=== PATIENT | female | born 1985 | race Hispanic/Latino ===

== ENCOUNTER 2018-09-20 20:28 | Emergency (ER) | payer SELFPAY ==
[2018-09-20] MEDS ORDERED: TETANUS & DIPHTHERIA TOX,ADULT 0.5 ML VIAL ONE (21:29)
[2018-09-20] MEDS ORDERED: LIDOCAINE 1% MPF 5 ML VIAL ONE (21:36)
--- NOTE | 2018-09-20 21:56 | RAD REPORT ---
EXAM DESCRIPTION: RAD - Hand Left 3 View - 09/20/2018 9:35 pm CLINICAL HISTORY: Hand trauma, hand pain, index finger laceration COMPARISON: None. FINDINGS: No fracture, dislocation or periosteal reaction noted. No acute bone or joint finding. Sof t tissue wound of the index finger is present near the middle phalanx. No air or foreign body. IMPRESSION: Soft tissue injury is present left second digit. No acute bone or joint finding.
--- NOTE | 2018-09-20 22:46 | EDPHYS ---
Physician Documentation [facility] Name: Shanon Hillman Age: 33 yrs Sex: Female : 1985 Arrival Date: 09/20/2018 Time: 20:31 Bed 28 Private MD: None, None ED Physician Amauri Last HPI: 09/20 21:20 This 33 yrs old Female presents to ER via Ambulatory with complaints of Finger cp laceration. 21:20 The patient or guardian reports injury, a laceration, irregular. cp 21:20 The complaints affect the dorsal aspect of middle phalanx of left index finger. cp Context: The problem was sustained at home, resulted from accident while using knife. Onset: The symptoms/episode began/occurred just prior to arrival. Associated signs and symptoms: Pertinent negatives: cyanosis distally, decreased sensation distally, numbness distally. 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 - Social history:: Smoking status: Patient/guardian denies using tobacco. - Ebola Screening: : Patient denies travel to an Ebola-affected area in the 21 days before illness onset. ROS: 21:25 Constitutional: Negative for body aches, chills, fever. cp 21:25 Cardiovascular: Negative for chest pain, edema, palpitations. cp 21:25 Respiratory: Negative for cough, shortness of breath, wheezing. 21:25 MS/extremity: Negative for decreased range of motion, paresthesias. 21:25 Skin: Positive for laceration(s), of the dorsal aspect of middle phalanx of left index finger, Negative for cellulitis, rash. 21:25 Neuro: Negative for numbness, tingling. 21:25 All other systems are negative. Exam: 21:33 Constitutional: The patient appears in no acute distress, alert, awake, non-toxic, well cp developed, well nourished. 21:33 Head/Face: Normocephalic, atraumatic. cp 21:33 Eyes: Periorbital structures: appear normal, Conjunctiva: normal, no exudate, no injection, Lids and lashes: appear normal, bilaterally. 21:33 ENT: External ear(s): are unremarkable, Nose: is normal, Mouth: is normal. 21:33 Chest/axilla: Inspection: normal. 21:33 Cardiovascular: Rate: tachycardic. 21:33 Respiratory: the patient does not display signs of respiratory distress, Respirations: normal. 21:33 Abdomen/GI: Inspection: abdomen appears normal. 21:33 Musculoskeletal/extremity: ROM: limited active range of motion, in the left index finger, Sensation intact. Tendon exam: specific tendon testing normal through active and passive range of motion 21:33 Skin: injury, laceration(s), the wound is approximately 3.5 cm(s), of the dorsal aspect of middle phalanx of left index finger, that can be described as clean, no foreign body, irregular, with moderate bleeding. Vital Signs: 20:48 BP 149 / 61; Pulse 102; Resp 18; Temp 97.8; Pulse Ox 99% on R/A; Weight 90.72 kg (R); aj1 Height 5 ft. 2 in. (157.48 cm) (R); Pain 10/10; 22:52 BP 121 / 93; Pulse 76; Resp 18; Temp 98.1; Pulse Ox 99% on R/A; Pain 0/10; ak1 20:48 Body Mass Index 36.58 (90.72 kg, 157.48 cm) aj1 Laceration: 22:45 Wound Repair of 3.5cm ( 1.4in ) subcutaneous laceration to dorsal aspect of middle cp phalanx of left index finger. Irregularly shaped.. Distal neuro/vascular/tendon intact. Anesthesia: Wound infiltrated with 5 mls of Lido/Marcaine. Wound prep: Extensive cleansing by me, Wound irrigation by me. Skin closed with 7 4-0 Prolene using interrupted sutures and sterile technique. Dressed with Bacitracin, tube gauze. Patient tolerated well. MDM: 20:57 Patient medically screened. cp 21:00 Differential diagnosis: open fracture, simple laceration, tendon injury. cp 22:41 Data reviewed: vital signs, nurses notes, radiologic studies, plain films, and as a cp result, I will discharge patient. 22:41 Test interpretation: by ED physician or midlevel provider: plain radiologic studies. cp 22:41 Counseling: I had a detailed discussion with the patient and/or guardian regarding: the cp historical points, exam findings, and any diagnostic results supporting the discharge/admit diagnosis, radiology results, to return to the emergency department if symptoms worsen or persist or if there are any questions or concerns that arise at home. Response to treatment: the patient's symptoms have markedly improved after treatment, and as a result, I will discharge patient. 09/20 21:18 Order name: XRAY Hand LEFT 3 View; Complete Time: 22:23 cp 09/20 22:23 Interpretation: Report reviewed. cp 09/20 21:18 Order name: Prolene, Sutures; Complete Time: 21:57 cp 09/20 21:18 Order name: Dressing - Wound; Complete Time: 22:30 cp 09/20 21:18 Order name: Gloves, Sterile; Complete Time: 21:24 cp 09/20 21:18 Order name: Setup Suture Tray; Complete Time: 21:24 cp 09/20 22:26 Order name: Wound dressing: tube guaze; Complete Time: 22:37 cp 09/20 22:26 Order name: Finger Splint; Complete Time: 22:37 cp Administered Medications: 21:25 Drug: Tetanus-Diphtheria Toxoid Adult 0.5 ml {Clinical Specialist Vascular: [employer]. Exp: kr2 11/02/2020. Lot #: [id number]. } Route: IM; Site: left deltoid; 22:06 Follow up: Response: No adverse reaction 2 21:56 Drug: Lidocaine (1 %) 5 mg {Note: placed at bedside for provider use.} Route: ak1 Infiltration; 21:57 Drug: Marcaine (0.5 %) 5 ml {Note: placed at bedside for provider use.} Volume: 10 ml; ak1 Route: Infiltration; Disposition: 23:00 Chart complete. cp 09/21 06:19 Co-signature as Attending Physician, Amauri Last MD Available for consultation at ps1 all times. . Disposition: 09/20/18 22:42 Discharged to Home. Impression: Laceration without foreign body of finger without damage to nail - Dorsum left index finger. - Condition is Stable. - Discharge Instructions: Laceration Care, Adult. - Prescriptions for Keflex 500 mg Oral Capsule - take 1 capsule by ORAL route every 8 hours for 10 days; 30 capsule. Tylenol- Codeine #3 300-30 mg Oral Tablet - take 2 tablets by ORAL route every 6 hours As needed; 12 tablet. - Medication Reconciliation Form, Thank You Letter, Antibiotic Education, Prescription Opioid Use form. - Follow up: Private Physician; When: 7 - 10 days; Reason: Staple/Suture removal. - Problem is new. - Symptoms have improved. Signatures: Dispatcher [employer] EDMS Liliana Haynes RN RN aj1 Melvina Melvin RN RN ak1 Colten Maxwell PA PA cp Jenna Barrientos RN RN kr2 Amauri Last MD MD ps1 Corrections: (The following items were deleted from the chart) 09/20 22:52 22:42 09/20/2018 22:42 Discharged to Home. Impression: Laceration without foreign body ak1 of finger without damage to nail - Dorsum left index finger. Condition is Stable. Forms are Medication Reconciliation Form, Thank You Letter, Antibiotic Education, Prescription Opioid Use. Follow up: Private Physician; When: 7 - 10 days; Reason: Staple/Suture removal. Problem is new. Symptoms have improved. cp
--- NOTE | 2018-09-20 22:46 | ER ---
Nurse's Notes [facility] Name: Shanon Hillman Age: 33 yrs Sex: Female : 1985 Arrival Date: 09/20/2018 Time: 20:31 Bed 28 Private MD: None, None Diagnosis: Laceration without foreign body of finger without damage to nail-Dorsum left index finger Presentation: 09/20 20:47 Presenting complaint: Patient states: She was cutting something in the kitchen and the aj1 knife slipped and she cut her left index finger. Laceration noted to left index finger, bleeding moderately. Transition of care: patient was not received from another setting of care. Onset of symptoms was September 20, 2018. Risk Assessment: Do you want to hurt yourself or someone else? Patient reports no desire to harm self or others. Initial Sepsis Screen: Does the patient meet any 2 criteria? No. Patient's initial sepsis screen is negative. Does the patient have a suspected source of infection? No. Patient's initial sepsis screen is negative. Care prior to arrival: None. 20:47 Method Of Arrival: Ambulatory aj1 20:47 Acuity: JESSI 4 aj1 Triage Assessment: 20:48 General: Appears in no apparent distress. uncomfortable, Behavior is cooperative, aj1 anxious, crying. Pain: Complains of pain in dorsal aspect of distal phalanx of left index finger Pain currently is 10 out of 10 on a pain scale. Neuro: Level of Consciousness is awake, alert, obeys commands. Cardiovascular: Patient's skin is warm and dry. Respiratory: Airway is patent Respiratory effort is even, unlabored, Respiratory pattern is regular, symmetrical. Injury Description: Laceration sustained to dorsal aspect of distal phalanx of left index finger moderate bleeding noted at this time. 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 - Social history:: Smoking status: Patient/guardian denies using tobacco. - Ebola Screening: : Patient denies travel to an Ebola-affected area in the 21 days before illness onset. Screenin:02 Abuse screen: Denies threats or abuse. Denies injuries from another. Nutritional kr2 screening: No deficits noted. Tuberculosis screening: No symptoms or risk factors identified. Fall Risk None identified. Assessment: 21:00 General: Appears in no apparent distress. uncomfortable, well groomed, well developed, kr2 well nourished, Behavior is cooperative, anxious, crying. Pain: Complains of pain in dorsal aspect of distal phalanx of left index finger Pain radiates to left hand Pain currently is 6 out of 10 on a pain scale. Quality of pain is described as aching, tender, Is continuous. Neuro: Level of Consciousness is awake, alert, obeys commands, Oriented to person, place, time, situation. Cardiovascular: Capillary refill < 3 seconds in bilateral fingers Patient's skin is warm and dry. Respiratory: Airway is patent Respiratory effort is even, unlabored, Respiratory pattern is regular, symmetrical. Derm: Skin is healthy with good turgor, Skin is pink, warm \T\ dry. Musculoskeletal: Circulation, motion, and sensation intact. Injury Description: Laceration sustained to dorsal aspect of distal phalanx of left index finger is full thickness, 0.5 to 2.5 cm long, was sustained 30-60 minutes ago. moderate bleeding noted at this time. Gauze applied to finger. 22:38 Reassessment: tube gauze applied, finger splint applied. ak1 Vital Signs: 20:48 BP 149 / 61; Pulse 102; Resp 18; Temp 97.8; Pulse Ox 99% on R/A; Weight 90.72 kg (R); aj1 Height 5 ft. 2 in. (157.48 cm) (R); Pain 10/10; 22:52 BP 121 / 93; Pulse 76; Resp 18; Temp 98.1; Pulse Ox 99% on R/A; Pain 0/10; ak1 20:48 Body Mass Index 36.58 (90.72 kg, 157.48 cm) aj1 ED Course: 20:31 Patient arrived in ED. mr 20:32 None, None is Private Physician. mr 20:47 Triage completed. aj1 20:48 Arm band placed on Patient placed in an exam room. aj1 20:57 Colten Maxwell PA is PHCP. cp 20:57 Amauri Last MD is Attending Physician. cp 21:00 Jenna Barrientos, RN is Primary Nurse. kr2 21:02 Patient has correct armband on for positive identification. Bed in low position. Call kr2 light in reach. Side rails up X 1. Adult w/ patient. Pulse ox on. NIBP on. Door closed. Head of bed elevated. 21:32 X-ray completed. Portable x-ray completed in exam room. Patient tolerated procedure az well. 21:33 XRAY Hand LEFT 3 View In Process Unspecified. EDMS 22:39 No provider procedures requiring assistance completed. Patient did not have IV access ak1 during this emergency room visit. Administered Medications: 21:25 Drug: Tetanus-Diphtheria Toxoid Adult 0.5 ml {Cooling Pan Tender: [employer]. Exp: kr2 11/02/2020. Lot #: [id number]. } Route: IM; Site: left deltoid; 22:06 Follow up: Response: No adverse reaction kr2 21:56 Drug: Lidocaine (1 %) 5 mg {Note: placed at bedside for provider use.} Route: ak1 Infiltration; 21:57 Drug: Marcaine (0.5 %) 5 ml {Note: placed at bedside for provider use.} Volume: 10 ml; ak1 Route: Infiltration; Outcome: 22:39 Condition: improved ak1 22:42 Discharge ordered by MD. cp 22:52 Discharged to home ambulatory, with family. ak1 22:52 Discharge instructions given to patient, Instructed on discharge instructions, follow up and referral plans. no drinking with medication, no driving heavy equipment, medication usage, safe sex practices, wound care, Demonstrated understanding of instructions, follow-up care, medications, wound care, Prescriptions given X 2. 22:52 Patient left the ED. ak1 Signatures: Dispatcher [employer] EDMS Liliana Haynes RN RN evette1 Brittany Vergara Amber, RN RN ak1 Colten Maxwell PA PA cp Jenna Barrientos, MIRIAM RN kr2 Jena Ag Corrections: (The following items were deleted from the chart) 21:34 21:00 Injury Description: Laceration sustained to dorsal aspect of distal phalanx of kr2 left index finger is full thickness, 0.5 to 2.5 cm long, was sustained 30-60 minutes ago. a small amount of bleeding noted at this time. kr2
== END 2018-09-20 22:52 | disposition home or self-care (01) ==
LOC: ER 20:28
PROC: 0JQK0ZZ Repair Left Hand Subcutaneous Tissue and Fascia, Open Approach (ICD-10-PCS; principal; 2018-09-20)
DX: S61.211A Laceration without foreign body of left index finger without damage to nail, initial encounter (principal); W26.0XXA Contact with knife, initial encounter; Y92.000 Kitchen of unspecified non-institutional (private) residence as the place of occurrence of the external cause; Z23 Encounter for immunization
CPT/HCPCS: 90714; 99284

== ENCOUNTER 2019-03-09 10:11 | Emergency (ER) | payer SELFPAY ==
[2019-03-09] MEDS ORDERED: ACETAMINOPHEN 500 MG TAB ONE (11:19)
[2019-03-09 11:57] LABS: Urine Blood 3+ (NEG); Urine Glucose NEGATIVE (NEG); Urine Protein 2+ (NEG); Urine Specific Gravity 1.015 (1.005-1.030); Urine pH 5.5 (5.0-7.0)
[2019-03-09 12:01] LABS: Absolute Lymphocytes (CBC) 2.1 K/uL (0.7-4.9); Absolute Monocytes 1.7 K/uL (0.1-1.3); Basophils % 0.2 % (0-1.3); Eosinophils % 0.1 % (0-4.4); Hematocrit 40.3 % (36.0-45.0); Lymphocytes % 11.9 % (15.3-44.8); MPV 8.7 fL (7.6-11.3); Monocytes % 9.3 % (3.3-12.3); RBC Red Blood Cell Count 4.81 M/uL (3.86-4.86)
[2019-03-09 12:09] LABS: Urine Bacteria >50 /HPF (<20); Urine Culture Reflex Order REFLEXED; Urine RBC >50 /HPF (NONE SEEN)
[2019-03-09 12:13] LABS: Potassium 3.4 mmol/L (3.5-5.1)
--- NOTE | 2019-03-09 12:19 | RAD REPORT ---
EXAM DESCRIPTION: RAD - Chest Single View - 03/09/2019 12:08 pm CLINICAL HISTORY: Fever, body aches, dyspnea COMPARISON: None. TECHNIQUE: AP portable chest image was obtained 1207 hours . FINDINGS: Lungs are clear. Heart and vasculature are normal. No measurable pleural effusion and no p neumothorax. No acute bony abnormality seen. No acute aortic findings suspected. IMPRESSION: No acute cardiopulmonary process.
[2019-03-09] MEDS ORDERED: CEFTRIAXONE/SWI 1gm 1 GM/10 ML SYR ONE (12:44)
[2019-03-09] MEDS ORDERED: NA CHLORIDE 0.9% 2,000 ML ONE (12:44)
--- NOTE | 2019-03-09 13:45 | ER ---
Nurse's Notes [facility] Name: Shanon Hillman Age: 34 yrs Sex: Female : 1985 Arrival Date: 03/09/2019 Time: 10:29 Bed 23 Private MD: Diagnosis: Acute cystitis with hematuria;Fever presenting with conditions classified elsewhere Presentation: 03/09 10:47 Presenting complaint: Patient states: fever and body aches since night, was iw seen at clinic on Sunday, flu/strep negative, fever was 104, pt is still having fever, headache, body aches, denies n/v/d, denies urinary s/s, c/ mild cough, was started on Tamiflu. Transition of care: patient was not received from another setting of care. Onset of symptoms was March 06, 2019. Risk Assessment: Do you want to hurt yourself or someone else? Patient reports no desire to harm self or others. Initial Sepsis Screen: Does the patient meet any 2 criteria? No. Patient's initial sepsis screen is negative. Does the patient have a suspected source of infection? No. Patient's initial sepsis screen is negative. Care prior to arrival: Medication(s) given: Tylenol, last night. 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 - Social history:: Smoking status: Patient/guardian denies using tobacco. - Ebola Screening: : Patient negative for fever greater than or equal to 101.5 degrees Fahrenheit, and additional compatible Ebola Virus Disease symptoms Patient denies exposure to infectious person Patient denies travel to an Ebola-affected area in the 21 days before illness onset No symptoms or risks identified at this time. Screenin:58 Abuse screen: Denies threats or abuse. Denies injuries from another. Nutritional aj screening: No deficits noted. Tuberculosis screening: No symptoms or risk factors identified. Fall Risk None identified. Assessment: 10:58 General: Appears in no apparent distress. comfortable, Behavior is calm, cooperative. aj Pain: Denies pain. Neuro: Level of Consciousness is awake, alert, obeys commands, Oriented to person, place, time, situation, Appropriate for age Reports headache. Respiratory: Airway is patent Respiratory effort is even, unlabored, Respiratory pattern is regular, symmetrical. Derm: Skin is intact, is healthy with good turgor, Skin is pink, warm \T\ dry. normal. Vital Signs: 10:51 BP 115 / 73; Pulse 116; Resp 16 S; Temp 98.8(TE); Pulse Ox 97% on R/A; Weight 95.25 kg; iw Height 5 ft. 5 in. (165.10 cm); Pain 9/10; 12:22 BP 114 / 75; Pulse 95; Resp 20; Temp 98.5; Pulse Ox 98% on R/A; aj 14:31 BP 117 / 72; Pulse 91; Resp 19; Temp 98.7; Pulse Ox 99% on R/A; aj 10:51 Body Mass Index 34.95 (95.25 kg, 165.10 cm) iw ED Course: 10:29 Patient arrived in ED. rg4 10:50 Triage completed. iw 10:51 Arm band placed on. iw 10:53 Sonali Ortiz, RN is Primary Nurse. aj 10:58 Patient has correct armband on for positive identification. aj 11:11 Adam Zambrano PA is PHCP. jr8 11:11 Juan Ramon Whitman MD is Attending Physician. jr8 11:51 Inserted saline lock: 20 gauge in right forearm, using aseptic technique. Blood aj collected. 12:06 XRAY Chest (1 view) In Process Unspecified. EDMS 13:01 Urine Culture Sent. aj 13:01 Blood Culture Adult (2) Sent. aj 14:31 No provider procedures requiring assistance completed. IV discontinued, intact, aj bleeding controlled, No redness/swelling at site. Pressure dressing applied. Administered Medications: 11:05 Drug: Tylenol 1000 mg Route: PO; aj 11:52 Follow up: Response: Marked relief of symptoms aj 12:42 Drug: NS 0.9% 1000 ml Route: IV; Rate: 1000 ml; Site: right forearm; aj 14:27 Follow up: Response: No adverse reaction; IV Status: Completed infusion; IV Intake: aj 1000ml 12:42 Drug: NS 0.9% 1000 ml Route: IV; Rate: 1000 ml; Site: right forearm; aj 14:26 Follow up: Response: No adverse reaction; IV Status: Completed infusion; IV Intake: aj 1000ml 12:42 Drug: Rocephin 1 grams Route: IV; Rate: calculated rate; Site: right forearm; aj Intake: 14:26 IV: 1000ml; Total: 1000ml. aj 14:27 IV: 1000ml; Total: 2000ml. evette Outcome: 13:45 Discharge ordered by MD. sims 14:31 Discharged to home ambulatory. aj 14:31 Condition: good 14:31 Discharge instructions given to patient, Instructed on discharge instructions, follow up and referral plans. Demonstrated understanding of instructions, follow-up care, medications, Prescriptions given X 1. 14:33 Patient left the ED. aj Addendum: 03/15/2019 10:17 Addendum: Culture Results: Positive urine culture. No further action required. Bacteria s s sensitive to prescribed antibiotic. Signatures: Dispatcher [employer] Sonali Bonds RN RN aj Williams, Irene, RN RN iw Smirch, Shelby, RN RN ss Roszak, Josh, PA PA jr8 Garcia, Rubi rg4
--- NOTE | 2019-03-09 13:46 | EDPHYS ---
Physician Documentation [facility] Name: Shanon Hillman Age: 34 yrs Sex: Female : 1985 Arrival Date: 03/09/2019 Time: 10:29 Bed 23 Private MD: ED Physician Juan Ramon Whitman HPI: 03/09 11:22 This 34 yrs old Female presents to ER via Ambulatory with complaints of Fever. jr8 11:22 The patient reports fever, not measured (subjective). Onset: The symptoms/episode jr8 began/occurred acutely, 3 day(s) ago. 11:22 Modifying factors: there are no obvious modifying factors. Associated signs and jr8 symptoms: Pertinent positives: arthralgias, chills, headaches. Severity of symptoms: At their worst the symptoms were mild in the emergency department the symptoms are unchanged. The patient has not experienced similar symptoms in the past. The patient has been recently seen by a physician:. Patient stated that she was seen by clinic the other day for symptoms listed above. Had flu and strep completed. Both were negative. Given Tamiflu. Continues to feel bad and still running fever . 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 - Social history:: Smoking status: Patient/guardian denies using tobacco. - Ebola Screening: : Patient negative for fever greater than or equal to 101.5 degrees Fahrenheit, and additional compatible Ebola Virus Disease symptoms Patient denies exposure to infectious person Patient denies travel to an Ebola-affected area in the 21 days before illness onset No symptoms or risks identified at this time. ROS: 11:22 Eyes: Negative for injury, pain, redness, and discharge, ENT: Negative for injury, jr8 pain, and discharge, Neck: Negative for injury, pain, and swelling, Cardiovascular: Negative for chest pain, palpitations, and edema, Respiratory: Negative for shortness of breath, cough, wheezing, and pleuritic chest pain. 11:22 Abdomen/GI: Negative for abdominal pain, nausea, vomiting, diarrhea, and constipation, Back: Negative for injury and pain, MS/Extremity: Negative for injury and deformity, Skin: Negative for injury, rash, and discoloration. 11:22 Constitutional: Positive for body aches, chills, fever. 11:22 Neuro: Positive for headache. Exam: 11:22 Constitutional: This is a well developed, well nourished patient who is awake, alert, jr8 and in no acute distress. Eyes: Pupils equal round and reactive to light, extra-ocular motions intact. Lids and lashes normal. Conjunctiva and sclera are non-icteric and not injected. Cornea within normal limits. Periorbital areas with no swelling, redness, or edema. ENT: Nares patent. No nasal discharge, no septal abnormalities noted. Tympanic membranes are normal and external auditory canals are clear. Oropharynx with no redness, swelling, or masses, exudates, or evidence of obstruction, uvula midline. Mucous membranes moist. Neck: Trachea midline, no thyromegaly or masses palpated, and no cervical lymphadenopathy. Supple, full range of motion without nuchal rigidity, or vertebral point tenderness. No Meningismus. Cardiovascular: Regular rate and rhythm with a normal S1 and S2. No gallops, murmurs, or rubs. Normal PMI, no JVD. No pulse deficits. Respiratory: Lungs have equal breath sounds bilaterally, clear to auscultation and percussion. No rales, rhonchi or wheezes noted. No increased work of breathing, no retractions or nasal flaring. Abdomen/GI: Soft, non-tender, with normal bowel sounds. No distension or tympany. No guarding or rebound. No evidence of tenderness throughout. Back: No spinal tenderness. No costovertebral tenderness. Full range of motion. Skin: Warm, dry with normal turgor. Normal color with no rashes, no lesions, and no evidence of cellulitis. MS/ Extremity: Pulses equal, no cyanosis. Neurovascular intact. Full, normal range of motion. Neuro: Awake and alert, GCS 15, oriented to person, place, time, and situation. Cranial nerves II-XII grossly intact. Motor strength 5/5 in all extremities. Sensory grossly intact. Cerebellar exam normal. Normal gait. Vital Signs: 10:51 BP 115 / 73; Pulse 116; Resp 16 S; Temp 98.8(TE); Pulse Ox 97% on R/A; Weight 95.25 kg; iw Height 5 ft. 5 in. (165.10 cm); Pain 9/10; 12:22 BP 114 / 75; Pulse 95; Resp 20; Temp 98.5; Pulse Ox 98% on R/A; aj 14:31 BP 117 / 72; Pulse 91; Resp 19; Temp 98.7; Pulse Ox 99% on R/A; aj 10:51 Body Mass Index 34.95 (95.25 kg, 165.10 cm) iw MDM: 11:11 Patient medically screened. [facility] 13:44 Data reviewed: vital signs, nurses notes, lab test result(s), and as a result, I will [facility] discharge patient. Data interpreted: Pulse oximetry: on room air is 98 %. Interpretation: normal. Counseling: I had a detailed discussion with the patient and/or guardian regarding: the historical points, exam findings, and any diagnostic results supporting the discharge/admit diagnosis, lab results, the need for outpatient follow up, a family practitioner, to return to the emergency department if symptoms worsen or persist or if there are any questions or concerns that arise at home. Response to treatment: the patient's symptoms have markedly improved after treatment, patient is well hydrated. 03/09 11:19 Order name: CBC with Diff; Complete Time: 12:08 [facility] 03/09 11:19 Order name: Basic Metabolic Panel; Complete Time: 12:24 [facility] 03/09 11:19 Order name: [place] Screen Profile; Complete Time: 12:24 [facility] 03/09 11:19 Order name: Urine Microscopic Only; Complete Time: 12:09 [facility] 03/09 11:54 Order name: Urine Dipstick--Ancillary (enter results); Complete [facility]: 12:00 [facility] 03/09 11:54 Order name: Urine --Ancillary (enter results); Complete Time: 12:00 [facility] 03/09 11:19 Order name: IV; Complete Time: 11:50 [facility] 03/09 11:19 Order name: XRAY Chest (1 view); Complete Time: 12:24 [facility] 03/09 12:11 Order name: Blood Culture Adult (2) [facility] 03/09 12:11 Order name: Urine Culture EDID 03/09 11:19 Order name: Urine Test (obtain specimen); Complete Time: 11:49 8 03/09 11:19 Order name: Urine Dipstick-Ancillary (obtain specimen); Complete Time: 11:48 Administered Medications: 11:05 Drug: Tylenol 1000 mg Route: PO; aj 11:52 Follow up: Response: Marked relief of symptoms aj 12:42 Drug: NS 0.9% 1000 ml Route: IV; Rate: 1000 ml; Site: right forearm; aj 14:27 Follow up: Response: No adverse reaction; IV Status: Completed infusion; IV Intake: aj 1000ml 12:42 Drug: NS 0.9% 1000 ml Route: IV; Rate: 1000 ml; Site: right forearm; aj 14:26 Follow up: Response: No adverse reaction; IV Status: Completed infusion; IV Intake: aj 1000ml 12:42 Drug: Rocephin 1 grams Route: IV; Rate: calculated rate; Site: right forearm; aj Disposition: 03/09/19 13:45 Discharged to Home. Impression: Acute cystitis with hematuria, Fever presenting with conditions classified elsewhere. - Condition is Stable. - Discharge Instructions: Fever, Adult, Urinary Tract Infection, Adult. - Prescriptions for Macrobid 100 mg Oral Capsule - take 1 capsule by ORAL route every 12 hours for 7 days; 14 capsule. - Medication Reconciliation Form, Thank You Letter, Antibiotic Education, Prescription Opioid Use form. - Follow up: Private Physician; When: 2 - 3 days; Reason: Recheck today's complaints, Continuance of care, Re-evaluation by your physician. - Problem is new. - Symptoms have improved. Addendum: 03/11/2019 08:06 Co-signature as Attending Physician, Juan Ramon Whitman MD I agree with the assessment and k dr plan of care. Signatures: Dispatcher [employer] EDID Sonali Ortiz RN RN aj Rittger, Kevin, MD MD kdr Gwen Roe RN RN iw Roszak, Josh, PA PA jr8 Corrections: (The following items were deleted from the chart) 03/09 11:23 11:22 Onset: The symptoms/episode began/occurred acutely, jr8 jr8 14:33 13:45 03/09/2019 13:45 Discharged to Home. Impression: Acute cystitis with hematuria; aj Fever presenting with conditions classified elsewhere. Condition is Stable. Forms are Medication Reconciliation Form, Thank You Letter, Antibiotic Education, Prescription Opioid Use. Follow up: Private Physician; When: 2 - 3 days; Reason: Recheck today's complaints, Continuance of care, Re-evaluation by your physician. Problem is new. Symptoms have improved. jr8
== END 2019-03-09 14:33 | disposition home or self-care (01) ==
LOC: ER 10:11
DX: N30.01 Acute cystitis with hematuria (principal)
CPT/HCPCS: 36415; 71045; 80048; 81003; 81015; 81025; 85025; 86308; 87040; 87077; 87086; 87088; 87186; 96361; 96374; 99284; J0696; J7030